=== PATIENT | male | born 1970 | race Caucasian/White ===

== ENCOUNTER 2020-01-28 17:22 | Observation (INO) | payer OTHER, SELFPAY ==
[2020-01-28 17:48] VITALS: BP 161/80; PULSE 54; RESP 22; TEMP 37; O2SAT 99; BMI 43.9
[2020-01-28 18:11] LABS: Add Manual Diff / Slide Review NO; Basophils Absolute Auto 100 /uL (0-100); Basophils Percent Auto 0.5 % (0-2); Eosinophils Absolute Auto 200 /uL (0-450); Eosinophils Percent Auto 1.5 % (2-4); Hematocrit 45.7 % (41-53); Hemoglobin 15.5 g/dL (13.5-17.5); Lymphocytes Absolute Auto 1700 /uL (1100-4500); Lymphocytes Percent Auto 12.3 % (25-40); Mean Corpuscular HGB Conc 33.9 % (30-36); Mean Corpuscular Hemoglobin 27.7 PG (26-34); Mean Corpuscular Volume 81.8 fL (80-100); Monocytes Absolute Auto 900 /uL (0-900); Monocytes Percent Auto 6.5 % (3-14); Neutrophils Absolute Auto 10900 /uL (1500-7000); Neutrophils Percent Auto 79.2 % (50-75); Platelet Count 354 X10^3/uL (150-400); Red Blood Cell Count 5.58 X10^6/uL (4.5-5.9); Red Cell Distribution Width 14.4 % (11.6-14.8); White Blood Cell Count 13.7 X10^3/uL (4.5-11.0)
[2020-01-28] MEDS: SODIUM CHLORIDE 0.9% 1,000 ML 1000 ML IV (18:12)
[2020-01-28] MEDS: ONDANSETRON 4 MG/2 ML INJ IV (18:12)
--- NOTE | 2020-01-28 18:12 | ED.ABDPAIN ---
HPI - Abdominal Pain General Chief Complaint: Abdominal Pain Stated Complaint: gallbladder attack Time Seen by Provider: 01/28/20 17:58 Source: patient and family Mode of arrival: Family Vehicle Limitations: no limitations History of Present Illness HPI narrative: 41-year-old male former smoker with history of GERD and recurrent gallbladder troubles since August presents with severe epigastric pain radiating to his back that started after eating a [employer] breakfast. He states this feels similar to prior gallbladder attacks but more intense. He had a HIDA scan ordered by an outside facility demonstrating decreased gallbladder function. He denies any fever or chills but complains of severe pain with nausea. He last ate at about 2:00 p.m.. He denies any change in bowel habits nor urinary complaints such as dysuria, frequency or urgency MD complaint: abdominal pain Onset (ago): hour(s) Pain Consistency: constant Location: epigastric Severity: severe Quality: stabbing and aching Radiation: back Relieving factors: rest Exacerbating factors: eating and movement Associated symptoms: nausea Related Data Home Medications Medication Instructions Recorded Confirmed acetaminophen 325 mg PO #0 01/18/17 bupropion HCl 100 mg PO QDAY #0 01/18/17 naproxen sodium [Aleve] 220 mg PO #0 01/18/17 Previous Rx's Medication Instructions Recorded fluticasone propionate 1 spray INTRANASAL BID #3 inh 01/18/17 omeprazole 20 mg PO BID #180 cap 01/18/17 Allergies Allergy/AdvReac Type Severity Reaction Status Date / Time oxycodone AdvReac Nausea Verified 01/28/20 19:35 Review of Systems Constitutional Constitutional: Denies chills, Denies fatigue, Denies fever(s), Denies frequent falls, Denies lethargy and Denies weakness Eyes Eyes: Denies change in vision, Denies eye discharge, Denies irritation and Denies loss of vision ENT Ears, Nose, Mouth, and Throat: Denies change in voice, Denies dizziness, Denies neck pain, Denies sore throat and Denies throat swelling Cardiovascular Cardiovascular: Denies chest pain, Denies irregular heart rhythm, Denies lightheadedness, Denies palpitations, Denies dyspnea, Denies dyspnea on exertion and Denies orthopnea Respiratory Respiratory: Denies cough, Denies dyspnea, Denies dyspnea on exertion and Denies wheezing Gastrointestinal Gastrointestinal: Reports abdominal pain, Denies change in bowel habits, Denies diarrhea, Reports nausea and Denies vomiting Genitourinary Genitourinary: Denies hematuria, Denies flank pain, Denies urinary incontinence and Denies urinary urgency Musculoskeletal Musculoskeletal: Denies back pain, Denies muscle weakness, Denies neck pain, Denies numbness and Denies tingling Integumentary/Breasts Skin/Breast: Denies pruritus, Denies erythema, Denies rash and Denies wounds Neurologic Neurologic: Denies behavioral changes, Denies confusion, Denies dizziness, Denies frequent falls, Denies loss of vision, Denies numbness, Denies tingling and Denies weakness Psychiatric Psychiatric: Denies anxiety, Denies behavioral changes, Denies confusion, Denies depression, Denies homicidal ideation and Denies suicidal ideation Endocrine Endocrine: Denies fatigue, Denies flushing and Denies palpitations Hematologic/Lymphatic Hematologic/Lymphatic: Denies easy bruising Allergic/Immunologic Allergic/Immunologic: Denies urticaria, Denies throat swelling and Denies wheezing Patient History Family History Father Age: 80 Cancer Diabetes mellitus Heart disease Mother Hypertension Mental health problem Stroke Sister Age: 58 Breast cancer Diabetes mellitus Sister Age: 56 Mental health problem Social History household members: spouse Smoking Status: Former smoker Smoking Status: Former smoker alcohol intake frequency: holidays/special occasions only Substance Use Type: does not use Exam Narrative Exam Narrative: GENERAL: [49] year old patient appears stated age. Well-nourished, well-developed patient, in moderate, rubbing his upper belly, obviously in significant pain HEAD: Atraumatic. Normocephalic. EYES: Pupils equal round and reactive. Extraocular motions intact. No scleral icterus. No injection or drainage. ENT: Nose without bleeding, purulent drainage. Throat without erythema, tonsillar hypertrophy or exudate. Airway patent. NECK: Trachea midline. Non tender CARDIOVASCULAR: Regular rate and rhythm without murmurs, gallops, or rubs. RESPIRATORY: Clear to auscultation. Breath sounds equal bilaterally. No wheezes, rales, or rhonchi. GASTROINTESTINAL: Abdomen soft, severely tender in the epigastrium, nondistended. EXTREMITIES: No edema or joint tenderness. BACK: Nontender without deformity or crepitance. No flank tenderness. NEURO: AOx3. SKIN: No rash or erythema of visible areas Initial Vital Signs Initial Vital Signs: Vital Signs Temperature 98.6 F 01/28/20 17:48 Pulse Rate 54 L 01/28/20 17:48 Respiratory Rate 22 01/28/20 17:48 Blood Pressure 161/80 H 01/28/20 17:48 Pulse Oximetry 99 01/28/20 17:48 Course Orders Ordered: ED Orders 01/28/20 18:13 US abdomen limited Stat Piperacillin/Tazobactam/Dextrose (Zosyn) 3.375 gm in 50 mls @ 100 mls/hr IV Q8H KATINA Last Infusion: 01/28/20 20:15 Dose: 0 mls/hr Documented by: Admin: 01/28/20 19:41 Dose: 100 mls/hr Documented by: SANA Sodium Chloride (Normal Saline 0.9%) 1,000 mls @ 125 mls/hr IV CONT KATINA Last Admin: 01/28/20 20:30 Dose: 125 mls/hr Documented by: RUFUS Morphine Sulfate (Morphine) 2 mg IV Q4HR PRN PRN Reason: Pain, Severe (7-10) Last Admin: 01/28/20 22:41 Dose: 2 mg Documented by: RUFUS Ondansetron HCl (Zofran) 4 mg IV Q4HR PRN PRN Reason: Nausea And Vomiting Oxycodone/Acetaminophen (Percocet 5/325) 1 tab PO Q4HR PRN PRN Reason: Pain, Moderate (4-6) Discontinued Medications Hydromorphone HCl (Dilaudid) 1 mg IV NOW ONE Stop: 01/28/20 18:14 Last Admin: 01/28/20 18:20 Dose: 1 mg Documented by: NILSON Hydromorphone HCl (Dilaudid) 1 mg IV NOW ONE Stop: 01/28/20 18:59 Last Admin: 01/28/20 19:07 Dose: 1 mg Documented by: SANA Sodium Chloride (Normal Saline 0.9%) 1,000 mls @ 1,000 mls/hr IV BOLUS ONE Stop: 01/28/20 19:06 Last Infusion: 03/01/20 19:31 Dose: 0 mls/hr Documented by: Admin: 01/28/20 18:12 Dose: 1,000 mls/hr Documented by: NILSON Ketorolac Tromethamine (Toradol) 15 mg IV NOW ONE Stop: 01/28/20 19:28 Last Admin: 01/28/20 19:31 Dose: 15 mg Documented by: SANA Ondansetron HCl (Zofran) 4 mg IV NOW ONE Stop: 01/28/20 18:08 Last Admin: 01/28/20 18:12 Dose: 4 mg Documented by: NILSON Consultations Consultation #1: Dr. Tolentino happy to accept Vital Signs Vital signs: Vital Signs - 8 hr 01/28/20 17:48 01/28/20 18:15 Temperature 98.6 F Pulse Rate 54 L 63 Respiratory Rate 22 18 Blood Pressure 161/80 H Blood Pressure [Left Arm] 157/77 H Pulse Oximetry 99 99 MDM - Abdominal Pain Lab Data Result diagrams: 01/28/20 18:05 01/28/20 18:05 Labs: Lab Results 01/28/20 01/28/20 01/28/20 Range/Units 18:05 18:05 18:05 WBC 13.7 H (4.5-11.0) X10^3/uL RBC 5.58 (4.5-5.9) X10^6/uL Hgb 15.5 (13.5-17.5) g/dL Hct 45.7 (41-53) % MCV 81.8 (80-100) fL MCH 27.7 (26-34) PG MCHC 33.9 (30-36) % RDW 14.4 (11.6-14.8) % Plt Count 354 (150-400) X10^3/uL Neut % (Auto) 79.2 H (50-75) % Lymph % (Auto) 12.3 L (25-40) % Dolores % (Auto) 6.5 (3-14) % Eos % (Auto) 1.5 L (2-4) % Baso % (Auto) 0.5 (0-2) % Neut # (Auto) 37922 H (7504-2264) /uL Lymph # (Auto) 1700 (0222-8899) /uL Dolores # (Auto) 900 (0-900) /uL Eos # (Auto) 200 (0-450) /uL Baso # (Auto) 100 (0-100) /uL PT 12.4 (10.1-12.7) SECONDS INR 1.1 (0.9-1.3) APTT 31 (26.4-36.2) SECONDS Sodium 141 (137-145) mmol/L Potassium 4.0 (3.4-5.1) mmol/L Chloride 104 (98-107) mmol/L Carbon Dioxide 24 (22-32) mmol/L BUN 16 (9-20) mg/dL Creatinine 0.90 (0.66-1.25) mg/dL Estimated GFR > 60.0 (>60) mL/min BUN/Creatinine Ratio 17.8 (6-22) Glucose 109 H (70-100) mg/dL Calcium 9.6 (8.4-10.2) mg/dL Total Bilirubin 0.6 (0.2-1.3) mg/dL AST 38 (17-59) IU/L ALT 53 H (<50) IU/L Alkaline Phosphatase 61 (38-126) U/L Total Protein 9.1 H (6.3-8.2) g/dL Albumin 4.9 (3.5-5.0) g/dL Globulin 4.2 H (1.7-4.1) g/dL Albumin/Globulin Ratio 1.2 (1.0-2.8) Lipase 123 (23-300) U/L Discharge Plan Departure Patient Disposition: Admitted As Inpatient Clinical Impression: Cholelithiasis Qualifiers: Cholelithiasis location: gallbladder Cholecystitis presence: without cholecystitis Biliary obstruction: without biliary obstruction Qualified Code(s): K80.20 - Calculus of gallbladder without cholecystitis without obstruction Discharge Date/Time: 01/28/20 20:19 Referrals: Silvia Calle DO [Primary Care Provider] - Admit Date/Time: 01/28/20 19:44 Admit Provider: Janes Tolentino
--- NOTE | 2020-01-28 18:13 | DI.US.S_ITS ---
PROCEDURE: US ABDOMEN LIMITED INDICATIONS: SEVERE EPIGASTRIC PAIN TECHNIQUE: Real-time scanning was performed of the abdominal and retroperitoneal organs, with image documentation. COMPARISON: None. FINDINGS: Liver: Liver is enlarged and measures 21.6 cm in length. Markedly increased liver parenchymal echotexture is seen. No definite discrete hepatic lesion is noted. Gallbladder: 6.8 mm stone is seen in neck of gallbladder. No gallbladder wall thickening or pericholecystic fluid is seen. There is sonographic Crowder's sign during the study. Biliary ducts: Biliary ducts are not well-seen due to patient condition. IMPRESSION: 1. Cholelithiasis with positive sonographic Crowder sign consistent with acute cholecystitis. 2. Hepatomegaly and severe hepatic steatosis. 3. Limited evaluation of common bile duct, no obvious biliary ductal dilatation is seen. Dictated by: Doron Walls M.D. on 01/28/2020 at 20:03 Approved by: Doron Walls M.D. on 01/28/2020 at 20:05
[2020-01-28 18:15] VITALS: BP 157/77; PULSE 63; RESP 18; O2SAT 99
[2020-01-28 18:18] LABS: INR 1.1 (0.9-1.3); Prothrombin Time 12.4 SECONDS (10.1-12.7)
[2020-01-28] MEDS: HYDROMORPHONE 1 MG INJ IV ×2 (18:20→19:07)
[2020-01-28 18:21] LABS: PTT Partial Thromboplastin Tim 31 SECONDS (26.4-36.2)
[2020-01-28 18:22] LABS: Alanine Aminotransferase 53 IU/L (<50); Albumin 4.9 g/dL (3.5-5.0); Albumin Globulin Ratio 1.2 (1.0-2.8); Alkaline Phosphatase 61 U/L (38-126); Aspartate Aminotransferase 38 IU/L (17-59); BUN Creatinine Ratio 17.8 (6-22); Bilirubin Total 0.6 mg/dL (0.2-1.3); Blood Urea Nitrogen 16 mg/dL (9-20); Calcium 9.6 mg/dL (8.4-10.2); Carbon Dioxide 24 mmol/L (22-32); Chloride 104 mmol/L (98-107); Estimated Glomerular Filt Rate > 60.0 mL/min (>60); Globulin 4.2 g/dL (1.7-4.1); Glucose 109 mg/dL (70-100); HEMOLYSIS 15 (0-50); Lipase 123 U/L (23-300); Sodium 141 mmol/L (137-145); Total Protein 9.1 g/dL (6.3-8.2)
[2020-01-28] MEDS: KETOROLAC 60 MG/2 ML VIAL 15 MG IV (19:31)
[2020-01-28] MEDS: PIPERACILLIN-TAZO 3.375 GM/50 ML FROZ.PIGGY IV (19:41)
[2020-01-28 19:56] VITALS: BP 148/72; PULSE 53; RESP 17; O2SAT 98
[2020-01-28 20:18] VITALS: BP 154/80; PULSE 60; RESP 16; O2SAT 97
[2020-01-28 20:25] VITALS: BP 143/75; PULSE 67; RESP 18; TEMP 36.6; O2SAT 98
[2020-01-28] MEDS: SODIUM CHLORIDE 0.9% 1,000 ML 125 ML IV (20:30)
[2020-01-28 20:33] VITALS: BMI 43.9
[2020-01-28] MEDS: MORPHINE 2 MG/ML INJ IV (22:41)
[2020-01-29] VITALS (16 sets, daily range): BP systolic 108–140; BP diastolic 59–85; PULSE 16–84; RESP 10–18; TEMP 36.2–37; O2SAT 90–99; BMI 43.9
--- NOTE | 2020-01-29 | PATH_ITS ---
[facility] Accession Number: [id number] . 01 Material submitted: . gallbladder - GALLBLADDER AND CONTENTS . 01 Clinical history: . GALLBLADDER ATTACK . 02 Diagnosis: Gallbladder, Cholecystectomy: Chronic cholecystitis with cholelithiasis. Negative for dysplasia and malignancy. MRV 01/31/2020 0945 Local . 02 Electronically signed: . Celena Maguire MD, Pathologist NPI- [id number] . 01 Gross description: . Received in formalin, labeled gallbladder and contents, is an intact gallbladder (length-9.0 cm, diameter-3.8 cm) with austin-green, smooth, shiny serosa and a patent cystic duct. Multiple possible lymph nodes (0.2 x 0.2 x 0.1 cm-0.5 x 0.3 x 0.2 cm) are identified. The lumen contains dark green, tacky, watery bile and one pale yellow, semi-translucent, hard calculus (0.7 x 0.6 x 0.6 cm) with a clear crystalline cut surface. The mucosa is middleton-green and rough. The wall is up to 0.1 cm thick. No nodules, masses or lesions are identified. Section code: (A1) cystic duct resection margin and two serial sections from the body; (A2) two longitudinal sections from the fundus; (A3) multiple intact possible lymph nodes. ([id number]) /MRV 01/30/2020 1322 Local . 02 Pathologist provided ICD-10: K80.60 . 02 CPT . 513208 Performed at: [address], [place], [place] [id number] MD Frank Alberto MD Phone: [phone] Performed at: 02 [facility] [place] [address] [place] [id number] MD Celena Maguire MD Phone: [phone]
[2020-01-29] MEDS: PIPERACILLIN-TAZO 3.375 GM/50 ML FROZ.PIGGY IV ×2 (03:47→11:49)
[2020-01-29] MEDS: MORPHINE 2 MG/ML INJ IV ×4 (03:52→20:59)
--- NOTE | 2020-01-29 06:17 | PM.HP.1 ---
History of Present Illness History of Present Illness Date Patient Seen: 01/29/20 Time Patient Seen: 06:18 Chief complaint: gallbladder attack Narrative: Yair is a 41-year-old male who presents with 1 day of epigastric pain and evidence of acute cholecystitis. It some associated nausea bloating no fever. He underwent ultrasound the emergency room demonstrates a stone stuck within the gallbladder neck and had positive Crowder sign. He has had 3 emergency room visits related to gallbladder disease has undergone outpatient workup including a HIDA scan which did demonstrate an ejection fraction 25%. White blood cell count on admission 14 afebrile total bilirubin 0.6. Nonsmoker not on anticoagulation no significant past medical or surgical history. Patient History Family & Social History Family History Father Age: 80 Cancer Diabetes mellitus Heart disease Mother Hypertension Mental health problem Stroke Sister Age: 58 Breast cancer Diabetes mellitus Sister Age: 56 Mental health problem Social History: household members spouse Prior Living Arrangements House Safety & Behavioral: Feels Safe in Current Yes Environment Been Physically Hurt or No Threatened By a Person Suicidal Ideation Description None Suicide Plan Description No Plan Tobacco & Substance use: Smoking Status Former smoker alcohol intake frequency holiday/special occasion Substance Use Type does not use Meds Home Medications and Allergies Home Medications Medication Instructions Recorded Confirmed Type acetaminophen 325 mg PO #0 01/18/17 History bupropion HCl 100 mg PO QDAY #0 01/18/17 History fluticasone propionate 1 spray INTRANASAL BID #3 inh 01/18/17 Rx naproxen sodium [Aleve] 220 mg PO #0 01/18/17 History omeprazole 20 mg PO BID #180 cap 01/18/17 Rx Allergies Allergy/AdvReac Type Severity Reaction Status Date / Time oxycodone AdvReac Nausea Verified 01/28/20 19:35 Review of Systems Review of Systems Narrative: A 10 point review of systems is negative except as noted in the HPI Exam Vital Signs (past 8 hours): - 01/29/20 00:49 01/29/20 06:00 Temperature 98.6 F 97.4 F L Pulse Rate 80 65 Respiratory Rate 16 18 Blood Pressure 110/72 128/71 Pulse Oximetry 99 98 Oxygen Delivery Method Room Air Oxygen Flow Rate 0 Narrative Exam Narrative: General-no acute distress, well nourished HEENT-moist mucous membranes, no scleral icterus Neck-supple, no lymphadenopathy Chest- non labored respirations, clear to auscultation bilaterally Cardiac-regular rate no peripheral edema Abdomen-soft right upper quadrant pain with deep palpation. Extremities-warm, well perfused Neurological-alert and oriented, no focal deficits Objective Labs Result Diagrams: 01/28/20 18:05 01/28/20 18:05 Labs: Laboratory Results - last 24 hr 01/28/20 01/28/20 01/28/20 18:05 18:05 18:05 WBC 13.7 H RBC 5.58 Hgb 15.5 Hct 45.7 MCV 81.8 MCH 27.7 MCHC 33.9 RDW 14.4 Plt Count 354 Neut % (Auto) 79.2 H Lymph % (Auto) 12.3 L [place] % (Auto) 6.5 Eos % (Auto) 1.5 L Baso % (Auto) 0.5 Neut # (Auto) 98678 H Lymph # (Auto) 1700 [place] # (Auto) 900 Eos # (Auto) 200 Baso # (Auto) 100 PT 12.4 INR 1.1 APTT 31 Sodium 141 Potassium 4.0 Chloride 104 Carbon Dioxide 24 BUN 16 Creatinine 0.90 Estimated GFR > 60.0 BUN/Creatinine Ratio 17.8 Glucose 109 H Calcium 9.6 Total Bilirubin 0.6 AST 38 ALT 53 H Alkaline Phosphatase 61 Total Protein 9.1 H Albumin 4.9 Globulin 4.2 H Albumin/Globulin Ratio 1.2 Lipase 123 Assessment & Plan Assessment and plan (1) Acute cholecystitis: Current visit: Yes Status: Acute (2) Depression: Current visit: Yes Status: Acute Assessment & Plan narrative: Yair is a 49-year-old male admitted with acute cholecystitis. 24 hours of right upper quadrant pain, and ultrasounds to showing a stone stuck within the gallbladder neck white count 14, normal LFTs. Laparoscopic cholecystectomy is indicated. We discussed the technical nature of the procedure expected postoperative recovery and its associated surgical risks of bleeding infection bile leak damage to surrounding structures conversion to open. His questions have been answered and he is in agreement with this plan.
[2020-01-29] MEDS: SODIUM CHLORIDE 0.9% 1,000 ML 125 ML IV (07:40)
[2020-01-29] MEDS: LACTATED RINGERS 1,000 ML 42 ML IV ×2 (13:25→15:10)
--- NOTE | 2020-01-29 14:24 | SUR.OPER ---
Supine on padded OR bed, head on pillow, safety belt at thigh, Both arms secured on padded arm boards <90 degrees abduction. Legs uncrossed. Padded footboard in place. Tape over blanket to secure lower legs.
--- NOTE | 2020-01-29 15:37 | CM.DPNOTE ---
DCP Brief Assessment Note Patient is a 49 year old male who was admitted OBS Status on 01/28/20 for Gallbladder attack. Pt has [employer] for insurance and his PCP is Dr. Silvia Calle. EMR was reviewed. Per Surgeon, pt schedule for Lap Jazmín this afternoon due to stone stuck in gallbladder neck. Bedside assessment not completed as pt was off the floor in surgery half the day. Plan: SW to follow after pt returns to the floor from surgery to determine any d/c planning needs and if pt will be safe for return home with spouse when stable. TAL Patino
[2020-01-29] MEDS: fentaNYL 100 MCG/2 ML INJ IV ×4 (15:40→16:05)
--- NOTE | 2020-01-29 16:02 | PC.NURSE ---
Spoke to patient's regarding patient's home CPAP, and if someone could bring it in, and she states that patient has not used it in 6 months, it is not clean, patient doesn't use and that he should use one of IHs.
[2020-01-29] MEDS: LACTATED RINGERS 1,000 ML 125 ML IV (16:57)
[2020-01-29] MEDS: ONDANSETRON 4 MG/2 ML INJ IV (19:52)
[2020-01-29] MEDS: OXYCODONE/ACETAMINOPHEN 5/325 TABLET 1 TAB PO (19:52)
[2020-01-29] MEDS: DOCUSATE 100 MG CAPSULE PO (21:02)
--- NOTE | 2020-01-29 21:41 | PC.NURSE ---
Pt A and O x 4, VSS. DC order written. Pt is eating solid food, drinking, voiding and has + BTs. Pain is 5-7/10, MD aware. Discharge instructions reviewed and patient and spouse state they understand and have no further questions. Pt taken to private care by wheelchair.
--- NOTE | 2020-01-31 08:37 | PM.OP.1 ---
Operative Date/Time/Diagnoses Date of procedure: 01/29/20 Pre-op diagnosis: Acute cholecystitis Post-op diagnosis: same Procedure & Clinicians Procedure: Laparoscopic cholecystectomy Same procedure as scheduled: Yes Indications: Acute cholecystitis, stone lodged within the neck of the gallbladder positive Crowder's and leukocytosis normal LFTs Surgeon: Janes Tolentino Click Yes if Unassisted: Yes Anesthesia Type: General Operative Notes Findings: Acute cholecystitis Specimen(s): other (Gallbladder) Estimated Blood Loss (mL): 10 Procedure in detail: The patient was brought to the operating room placed supine on the table. Bilateral lower extremity compression devices were applied. General anesthesia was induced and they were intubated with an endotracheal tube. They the received Zosyn prior to skin incision. A time-out was performed to ensure the correct patient procedure necessary equipment within the operating room. They were then prepped and draped in the usual sterile fashion. Infraumbilical incision was made the umbilical stalk was grasped and elevated and the fascia was sharply incised. The abdomen was entered atraumatically. A 10 mm trocar was then placed into the abdomen. Pneumoperitoneum was established. The laparoscopic camera was inserted into the abdomen inspection was made that demonstrated no evidence of injury upon entry. We then placed our working ports the 1st 11 mm port high in the epigastrium and then two 5mm in the right upper quadrant. The gallbladder was grasped and retracted over the liver and grasped laterally by the fundus. There was evidence of acute cholecystitis as well as a stone mobile within the neck of the gallbladder. The triangle of Calot was exposed. The triangle of calot was then meticulosly skeletonized using hook electrocautery and demonstrated the cystic duct clearly entering the gallbladder the cystic artery and the liver and in the background. With the critical view of safety established the cystic duct was clipped twice proximally and once distally and then sharply divided and the cystic artery was taken in the same fashion. Next the gallbladder was removed from the liver bed using electro cautery. The liver bed was then inspected for hemostasis and this was achieved. The abdomen was irrigated with sterile saline and inspection was made that showed the clips in good position. The specimen was removed using Endo-Catch. The abdomen was desufflated. The the fascia of the umbilicus was closed with 0 Vicryl in a [id number] fashion. Skin incisions were irrigated and closed with 4-0 Monocryl. The wounds were sealed with Dermabond. Patient emerged from general anesthesia was extubated and transferred to the postoperative care unit missed stable condition. The sponge and instrument count at the end of the operation was correct. Complications: none Post-operative Condition: stable Disposition: same day surgery
== END 2020-01-29 21:53 | disposition home or self-care (01) ==
LOC: ED 19:26 → AC 19:46
PROVIDERS: Emergency Medicine; Admitting Provider Surgery; Emergency Provider Emergency Medicine; Family Provider Family Medicine; PCP Family Medicine; Referring Provider Emergency Medicine; Visit Provider Surgery
PROC: 0FT44ZZ Resection of Gallbladder, Percutaneous Endoscopic Approach (ICD-10-PCS; CPT 47562; principal; 2020-01-29 15:15)
DX: K80.00 Calculus of gallbladder with acute cholecystitis without obstruction (principal); R10.13 Epigastric pain; F32.9 Major depressive disorder, single episode, unspecified
CPT/HCPCS: 47562; 36415; 76705; 80053; 83690; 85025; 85610; 85730; 93005; 93010; 96361; 96365; 96366; 96375; 96376; 99220; 99284; G0378; J0330; J1100; J1170; J1885; J2270; J2405; J2543; J2704; J3010

== ENCOUNTER → 2021-05-02 09:28 | Outpatient (CLI) | payer OTHER, SELFPAY ==
[2021-05-02 10:32] LABS: Add Manual Diff / Slide Review NO; Basophils Absolute Auto 100 /uL (0-100); Basophils Percent Auto 0.8 % (0-2); Eosinophils Absolute Auto 400 /uL (0-450); Eosinophils Percent Auto 4.9 % (2-4); Hematocrit 43.9 % (41-53); Hemoglobin 14.5 g/dL (13.5-17.5); Lymphocytes Absolute Auto 2300 /uL (1100-4500); Lymphocytes Percent Auto 28.4 % (25-40); Mean Corpuscular HGB Conc 32.9 % (30-36); Mean Corpuscular Hemoglobin 27.1 PG (26-34); Mean Corpuscular Volume 82.3 fL (80-100); Monocytes Absolute Auto 700 /uL (0-900); Monocytes Percent Auto 8.5 % (3-14); Neutrophils Absolute Auto 4700 /uL (1500-7000); Neutrophils Percent Auto 57.4 % (50-75); Platelet Count 353 X10^3/uL (150-400); Red Blood Cell Count 5.33 X10^6/uL (4.5-5.9); Red Cell Distribution Width 15.4 % (11.6-14.8); White Blood Cell Count 8.2 X10^3/uL (4.5-11.0)
[2021-05-02 10:42] LABS: Hemoglobin A1C% w Est Avg Glu 6.2 % (4.0-6.0)
[2021-05-02 10:48] LABS: Alanine Aminotransferase 47 IU/L (<50); Albumin Globulin Ratio 1.1 (1.0-2.8); Alkaline Phosphatase 54 U/L (38-126); Aspartate Aminotransferase 34 IU/L (17-59); BUN Creatinine Ratio 15.2 (6-22); Bilirubin Total 0.2 mg/dL (0.2-1.3); Blood Urea Nitrogen 12 mg/dL (9-20); Calcium 8.9 mg/dL (8.4-10.2); Carbon Dioxide 28 mmol/L (22-32); Chloride 104 mmol/L (98-107); Cholesterol 109 mg/dL (140-199); Estimated Glomerular Filt Rate > 60.0 mL/min (>60); Globulin 3.5 g/dL (1.7-4.1); Glucose 82 mg/dL (70-100); HDL Cholesterol 22 mg/dL (40-60); HEMOLYSIS < 15 (0-50); LDL Cholesterol Calculated 70 mg/dL (<100); Sodium 139 mmol/L (137-145); Total Protein 7.5 g/dL (6.3-8.2); Triglycerides 86 mg/dL (35-150)
[2021-05-02 10:59] LABS: Vitamin D 25 Hydroxy (D3) 19.1 ng/mL (30.0-100.0)
[2021-05-02 11:07] LABS: Free T3, Triiodothyronine Free 4.24 pg/mL (2.77-5.27); Free T4, Direct Thyroxine 1.68 ng/dL (0.78-2.19)
[2021-05-02 11:20] LABS: Thyroid Stimulating Hormone 2.15 uIU/mL (0.47-4.68)
== END ==
PROVIDERS: Family Provider Family Medicine; PCP Family Medicine; Referring Provider Family Medicine; Visit Provider Family Medicine
DX: Z13.21 Encounter for screening for nutritional disorder (principal); Z83.3 Family history of diabetes mellitus
CPT/HCPCS: 36415; 80053; 80061; 82306; 83036; 84439; 84443; 84481; 85025

== ENCOUNTER 2021-07-31 08:19 | Emergency (ER) | payer OTHER, SELFPAY ==
[2021-07-31 08:29] VITALS: BP 141/69; PULSE 63; RESP 18; TEMP 35.9; O2SAT 100; BMI 45.9
[2021-07-31 09:00] LABS: Add Manual Diff / Slide Review NO; Basophils Absolute Auto 100 /uL (0-100); Basophils Percent Auto 0.8 % (0-2); Eosinophils Absolute Auto 300 /uL (0-450); Eosinophils Percent Auto 3.2 % (2-4); Hematocrit 42.5 % (41-53); Hemoglobin 14.2 g/dL (13.5-17.5); Lymphocytes Absolute Auto 1600 /uL (1100-4500); Mean Corpuscular HGB Conc 33.4 % (30-36); Mean Corpuscular Hemoglobin 27.1 PG (26-34); Monocytes Absolute Auto 600 /uL (0-900); Neutrophils Absolute Auto 6400 /uL (1500-7000); Platelet Count 273 X10^3/uL (150-400); Red Blood Cell Count 5.25 X10^6/uL (4.5-5.9); Red Cell Distribution Width 14.9 % (11.6-14.8); White Blood Cell Count 9.1 X10^3/uL (4.5-11.0)
[2021-07-31 09:02] LABS: Alanine Aminotransferase 47 IU/L (<50); Albumin Globulin Ratio 1.3 (1.0-2.8); Alkaline Phosphatase 57 U/L (38-126); Aspartate Aminotransferase 35 IU/L (17-59); BUN Creatinine Ratio 18.4 (6-22); Bilirubin Total 0.5 mg/dL (0.2-1.3); Blood Urea Nitrogen 14 mg/dL (9-20); Calcium 8.7 mg/dL (8.4-10.2); Carbon Dioxide 26 mmol/L (22-32); Chloride 104 mmol/L (98-107); Creatine Kinase 118 U/L (55-170); Estimated Glomerular Filt Rate > 60.0 mL/min (>60); Globulin 3.2 g/dL (1.7-4.1); Glucose 139 mg/dL (70-100); HEMOLYSIS < 15 (0-50); Lipase 62 U/L (23-300); Potassium 3.9 mmol/L (3.4-5.1); Sodium 138 mmol/L (137-145); Total Protein 7.2 g/dL (6.3-8.2)
--- NOTE | 2021-07-31 09:03 | ED.DIZZY ---
HPI - Dizziness General Chief Complaint: Dizziness Stated Complaint: dizzy,vertigo Time Seen by Provider: 07/31/21 08:56 Source: patient Mode of arrival: Ambulatory Limitations: no limitations History of Present Illness HPI Narrative: The patient was well when he went to bed last night. He woke with dizziness this morning. He has counter-clockwise spinning. He has no visual changes. He has no confusion or speech changes. He has no peripheral numbness or weakness. He denies recent illness, specifically no URI symptoms. He has no chronic ear problems. He has not previously experienced dizziness. He has nausea, but no emesis. He has no palpitations, chest pain or chest discomfort, or GI symptoms other than nausea. He has history of headaches, he is not experiencing headache at this time. Related Data Home Medications Medication Instructions Recorded Confirmed acetaminophen 325 mg tablet 325 mg PO PRN PRN #0 01/18/17 04/23/21 [id number] 250 2 tab PO Q6H PRN 04/23/21 04/23/21 mg-250 mg-65 mg tablet (Excedrin Extra Strength) naproxen sodium 220 mg tablet 220 mg PO BID PRN 04/23/21 04/23/21 (Aleve) Previous Rx's Medication Instructions Recorded ergocalciferol (vitamin D2) 1,250 1,250 mcg PO QWEEK #8 cap 07/10/21 mcg (50,000 unit) capsule (Vitamin D2) sumatriptan succinate 50 mg tablet See Rx Instructions PO .COMPLEX 07/10/21 #20 tab meclizine 25 mg tablet 25 mg PO TID PRN #20 tab 07/31/21 Allergies Allergy/AdvReac Type Severity Reaction Status Date / Time oxycodone AdvReac Nausea Verified 04/23/21 08:31 Review of Systems Constitutional Constitutional: Reports as per HPI, Denies body ache(s), Denies chills, Denies fatigue, Denies fever(s) and Denies headache(s) Eyes Eyes: Denies blurry vision and Denies change in vision ENT Ears, Nose, Mouth, and Throat: Reports dizziness, Denies ear discharge, Denies otalgia, Denies facial pain, Denies headache(s), Denies mouth lesions, Denies nasal congestion and Denies nasal discharge Cardiovascular Cardiovascular: Denies chest pain and Denies rapid heart rate Respiratory Respiratory: Denies chest congestion and Denies cough Gastrointestinal Gastrointestinal: Denies abdominal pain, Reports nausea and Denies vomiting Musculoskeletal Musculoskeletal: Denies back pain and Denies arthralgias Integumentary/Breasts Skin/Breast: Denies dry skin, Denies erythema and Denies rash Neurologic Neurologic: Reports dizziness and Denies headache(s) Psychiatric Psychiatric: Denies anxiety Endocrine Endocrine: Denies fatigue Patient History Medical History Acne (~1984) Acute cholecystitis ADHD Ankle pain (~1999) Anxiety and depression (~1999) BMI greater than 30 Chicken pox Cholelithiasis Chronic low back pain with sciatica (~2004) Depression Fractures (~1997) GERD (gastroesophageal reflux disease) (~2013) Headache (~2013) Low testosterone (~2013) Lumbar pain (~2009) Migraine Migraines (~2013) Pre-diabetes Sleep apnea (~2016) Spinal stenosis Tinnitus (~2001) Vitamin D deficiency Surgical History Anesthesia Hx laparoscopic cholecystectomy (~01/2020) Family History Father Age: 81 Diabetes mellitus Heart disease Skin cancer Mother Hypertension Mental health problem Stroke Hyperlipidemia Sister Age: 59 Breast cancer Diabetes mellitus Sister Age: 57 Mental health problem Diabetes mellitus Grandfather Accident Grandmother Dementia Grandfather Lung cancer Grandmother Lung cancer Social History household members: spouse Smoking Status: Former smoker alcohol intake: current Smoking Status: Former smoker alcohol intake frequency: holidays/special occasions only Substance Use Type: does not use Exam Initial Vital Signs Initial Vital Signs: Vital Signs Temperature 96.6 F L 07/31/21 08:29 Pulse Rate 63 07/31/21 08:29 Respiratory Rate 18 07/31/21 08:29 Blood Pressure 141/69 H 07/31/21 08:29 Pulse Oximetry 100 07/31/21 08:29 Const General: cooperative, healthy appearing, comfortable, well developed, well groomed and No acute distress HENMT Head: normal to inspection, normocephalic and atraumatic Ears: other ( Cerumen impaction. Normal TMs. Fluid behind TMs.) Nose: nares normal Face and sinus: sinuses nontender Mouth: oral mucosae normal Throat: posterior oropharynx normal, tonsils normal and uvula midline Eyes General: appearance normal, both eyes and all related structures Pupils: PERRL EOM: EOM intact bilaterally Neck Neck: supple, No lymphadenopathy and No JVD Chest Chest: normal inspection of the chest Resp Effort & Inspection: normal respiratory effort Auscultation: clear to auscultation bilaterally Percussion: percussion normal Cardio Palpation: normal PMI Rate: regular rate Rhythm: regular rhythm Heart Sounds: S1 normal and S2 normal GI Inspection: normal to inspection, non-distended and obesity Palpation: soft and No tender Auscultation: normal bowel sounds Skin General: no rashes or lesions noted Neuro General: patient alert, patient awake and other ( Hallpike positive to the right) Course Course Course Narrative: the patient's ears were irrigated clear by his nurse. The cerumen impaction has been relieved. His TMs are normal, he has clear fluid behind both TMs. He was given meclizine for labyrinthitis. Symptoms have resolved. Orders Ordered: ED Orders 07/31/21 08:48 EKG-12 Lead Stat 07/31/21 08:52 Complete Blood Count AUTO DIFF Stat Comprehensive Metabolic Panel Stat Lipase Stat Troponin & CK Cardiac Panel Stat Discontinued Medications Meclizine HCl (Meclizine Hcl 12.5 Mg Tablet) 50 mg PO NOW ONE Stop: 07/31/21 09:03 Last Admin: 07/31/21 09:11 Dose: 50 mg Documented by: JO Vital Signs Vital signs: Vital Signs - 8 hr 07/31/21 08:29 07/31/21 09:45 Temperature 96.6 F L Pulse Rate 63 49 L Respiratory Rate 18 12 Blood Pressure 141/69 H 145/74 H Pulse Oximetry 100 98 MDM - Dizziness Lab Data Result diagrams: 07/31/21 08:52 07/31/21 08:52 Labs: Lab Results 07/31/21 07/31/21 Range/Units 08:52 08:52 WBC 9.1 (4.5-11.0) X10^3/uL RBC 5.25 (4.5-5.9) X10^6/uL Hgb 14.2 (13.5-17.5) g/dL Hct 42.5 (41-53) % MCV 81.0 (80-100) fL MCH 27.1 (26-34) PG MCHC 33.4 (30-36) % RDW 14.9 H (11.6-14.8) % Plt Count 273 (150-400) X10^3/uL Neut % (Auto) 71.0 (50-75) % Lymph % (Auto) 18.0 L (25-40) % [place] % (Auto) 7.0 (3-14) % Eos % (Auto) 3.2 (2-4) % Baso % (Auto) 0.8 (0-2) % Neut # (Auto) 6400 (6495-5357) /uL Lymph # (Auto) 1600 (1929-9457) /uL [place] # (Auto) 600 (0-900) /uL Eos # (Auto) 300 (0-450) /uL Baso # (Auto) 100 (0-100) /uL Sodium 138 (137-145) mmol/L Potassium 3.9 (3.4-5.1) mmol/L Chloride 104 (98-107) mmol/L Carbon Dioxide 26 (22-32) mmol/L BUN 14 (9-20) mg/dL Creatinine 0.76 (0.66-1.25) mg/dL Estimated GFR > 60.0 (>60) mL/min BUN/Creatinine Ratio 18.4 (6-22) Glucose 139 H (70-100) mg/dL Calcium 8.7 (8.4-10.2) mg/dL Total Bilirubin 0.5 (0.2-1.3) mg/dL AST 35 (17-59) IU/L ALT 47 (<50) IU/L Alkaline Phosphatase 57 (38-126) U/L Total Creatine Kinase 118 (55-170) U/L CK-MB (CK-2) 1.04 (<2.37) ng/mL CK-MB (CK-2) Rel Index 0.9 L (1.5-5.0) % Troponin I < 0.012 (0.01-0.034) ng/mL Total Protein 7.2 (6.3-8.2) g/dL Albumin 4.0 (3.5-5.0) g/dL Globulin 3.2 (1.7-4.1) g/dL Albumin/Globulin Ratio 1.3 (1.0-2.8) Lipase 62 (23-300) U/L ECG Data Attestation: I personally reviewed and interpreted this ECG as follows: (Sinus bradycardia rate 52 beats per minute. Normal intervals. No ectopy. No acute ST T wave changes.) Discharge Plan Departure Patient Disposition: Home Clinical Impression: Labyrinthitis Qualifiers: Laterality: right Qualified Code(s): H83.01 - Labyrinthitis, right ear Instructions: Labyrinthitis Activity Restrictions/Additional Instructions: Meclizine every 8 hours as needed for dizziness. Mucinex is available [id number], this helps with sinus congestion. This may help with the congestion in your years. Your glucose is mildly elevated. Follow-up with your doctor for monitoring. Return if symptoms escalate. Prescriptions: New meclizine 25 mg tablet 25 mg PO TID PRN (Reason: dizziness) Qty: 20 RF: 0 No Action acetaminophen 325 MG tablet 325 mg PO PRN PRN (Reason: pain) Qty: 0 RF: 0 naproxen sodium [Aleve] 220 mg tablet 220 mg PO BID PRNRF: 0 Excedrin Extra Strength 250-250-65 mg tablet 2 tab PO Q6H PRNRF: 0 sumatriptan succinate 50 mg tablet See Rx Instructions PO .COMPLEX Qty: 20 RF: 3 ergocalciferol (vitamin D2) [Vitamin D2] 1,250 mcg (50,000 unit) capsule 1,250 mcg PO QWEEK Qty: 8 RF: 0 Referrals: David Savage DO [Primary Care Provider] - Stand Alone Forms: Work Release Note
[2021-07-31] MEDS: MECLIZINE HCL 12.5 MG TABLET 50 MG PO (09:11)
[2021-07-31 09:13] LABS: Troponin I < 0.012 ng/mL (0.01-0.034)
[2021-07-31 09:17] LABS: CKMB % Relative Index 0.9 % (1.5-5.0); Creatine Kinase MB 1.04 ng/mL (<2.37)
[2021-07-31 09:45] VITALS: BP 145/74; PULSE 49; RESP 12; O2SAT 98
[2021-07-31 10:49] VITALS: BP 142/84; PULSE 57; RESP 20; O2SAT 98
== END 2021-07-31 10:52 | disposition home or self-care (01) ==
PROVIDERS: Emergency Provider Emergency Medicine; Family Provider Family Medicine; PCP Family Medicine
DX: H83.01 Labyrinthitis, right ear (principal); R11.0 Nausea; R00.1 Bradycardia, unspecified
CPT/HCPCS: 36415; 69209; 80053; 82550; 82553; 83690; 84484; 85025; 93005; 99284

== ENCOUNTER → 2021-10-17 09:42 | Outpatient (CLI) | payer OTHER, SELFPAY ==
[2021-10-17 11:06] LABS: Hematocrit 43.1 % (41-53); Hemoglobin 14.6 g/dL (13.5-17.5); Mean Corpuscular HGB Conc 33.9 % (30-36); Mean Corpuscular Hemoglobin 27.1 PG (26-34); Platelet Count 313 X10^3/uL (150-400); Red Blood Cell Count 5.39 X10^6/uL (4.5-5.9); Red Cell Distribution Width 14.7 % (11.6-14.8); White Blood Cell Count 9.2 X10^3/uL (4.5-11.0)
[2021-10-17 11:10] LABS: Hemoglobin A1C% w Est Avg Glu 5.9 % (4.0-6.0)
[2021-10-17 11:32] LABS: Add Manual Diff / Slide Review YES
[2021-10-17 12:02] LABS: Alanine Aminotransferase 55 IU/L (<50); Albumin 4.2 g/dL (3.5-5.0); Albumin Globulin Ratio 1.4 (1.0-2.8); Alkaline Phosphatase 61 U/L (38-126); Aspartate Aminotransferase 43 IU/L (17-59); Bilirubin Total 0.7 mg/dL (0.2-1.3); Bilirubin Unconjugated 0.7 mg/dL (0.0-1.1); Cholesterol 129 mg/dL (140-199); HDL Cholesterol 28 mg/dL (40-60); HEMOLYSIS < 15 (0-50); LDL Cholesterol Calculated 73 mg/dL (<100); Total Protein 7.2 g/dL (6.3-8.2); Triglycerides 141 mg/dL (35-150)
[2021-10-17 12:13] LABS: LDL Cholesterol Direct 73 mg/dL (<100)
[2021-10-17 12:24] LABS: Neutrophils Absolute Manual 6808 /uL (3000-5900); Total Cells Counted 100
== END ==
PROVIDERS: Family Provider Family Medicine; PCP Family Medicine; Referring Provider Physician Assistant; Visit Provider Physician Assistant
DX: L70.0 Acne vulgaris (principal); R73.03 Prediabetes
CPT/HCPCS: 36415; 80061; 80076; 83036; 83721; 85007; 85025

== ENCOUNTER → 2021-12-04 17:50 | Outpatient (CLI) | payer OTHER, SELFPAY ==
[2021-12-04 18:10] LABS: Add Manual Diff / Slide Review NO; Basophils Absolute Auto 100 /uL (0-100); Basophils Percent Auto 0.8 % (0-2); Eosinophils Absolute Auto 400 /uL (0-450); Eosinophils Percent Auto 3.4 % (2-4); Hematocrit 41.7 % (41-53); Hemoglobin 14.3 g/dL (13.5-17.5); Lymphocytes Absolute Auto 2700 /uL (1100-4500); Lymphocytes Percent Auto 23.3 % (25-40); Mean Corpuscular HGB Conc 34.4 % (30-36); Mean Corpuscular Hemoglobin 27.3 PG (26-34); Mean Corpuscular Volume 79.3 fL (80-100); Monocytes Absolute Auto 900 /uL (0-900); Monocytes Percent Auto 8.3 % (3-14); Neutrophils Absolute Auto 7300 /uL (1500-7000); Neutrophils Percent Auto 64.2 % (50-75); Platelet Count 310 X10^3/uL (150-400); Red Blood Cell Count 5.26 X10^6/uL (4.5-5.9); Red Cell Distribution Width 14.6 % (11.6-14.8); White Blood Cell Count 11.4 X10^3/uL (4.5-11.0)
[2021-12-04 18:27] LABS: Alanine Aminotransferase 60 IU/L (<50); Albumin 4.4 g/dL (3.5-5.0); Albumin Globulin Ratio 1.3 (1.0-2.8); Alkaline Phosphatase 62 U/L (38-126); Aspartate Aminotransferase 50 IU/L (17-59); Bilirubin Total 0.4 mg/dL (0.2-1.3); Bilirubin Unconjugated 0.4 mg/dL (0.0-1.1); Cholesterol 139 mg/dL (140-199); Globulin 3.5 g/dL (1.7-4.1); HDL Cholesterol 26 mg/dL (40-60); HEMOLYSIS < 15 (0-50); LDL Cholesterol Calculated 68 mg/dL (<100); Total Protein 7.9 g/dL (6.3-8.2); Triglycerides 224 mg/dL (35-150); VLDL Cholesterol Calculated 45 mg/dL (2-30)
== END ==
PROVIDERS: Family Provider Family Medicine; PCP Family Medicine; Referring Provider Physician Assistant; Visit Provider Physician Assistant
DX: L70.0 Acne vulgaris (principal)
CPT/HCPCS: 36415; 80061; 80076; 85025

== ENCOUNTER → 2022-02-11 08:11 | Outpatient (CLI) | payer OTHER, SELFPAY ==
[2022-02-11 08:35] LABS: Add Manual Diff / Slide Review NO; Basophils Absolute Auto 100 /uL (0-100); Eosinophils Absolute Auto 500 /uL (0-450); Eosinophils Percent Auto 5.1 % (2-4); Hematocrit 42.4 % (41-53); Hemoglobin 14.2 g/dL (13.5-17.5); Lymphocytes Absolute Auto 2000 /uL (1100-4500); Mean Corpuscular HGB Conc 33.4 % (30-36); Monocytes Absolute Auto 600 /uL (0-900); Monocytes Percent Auto 6.8 % (3-14); Neutrophils Absolute Auto 6000 /uL (1500-7000); Neutrophils Percent Auto 65.1 % (50-75); Platelet Count 273 X10^3/uL (150-400); Red Blood Cell Count 5.24 X10^6/uL (4.5-5.9); Red Cell Distribution Width 15.2 % (11.6-14.8); White Blood Cell Count 9.3 X10^3/uL (4.5-11.0)
[2022-02-11 08:52] LABS: Alanine Aminotransferase 49 IU/L (<50); Albumin 4.2 g/dL (3.5-5.0); Albumin Globulin Ratio 1.2 (1.0-2.8); Alkaline Phosphatase 65 U/L (38-126); Aspartate Aminotransferase 45 IU/L (17-59); Bilirubin Total 0.6 mg/dL (0.2-1.3); Bilirubin Unconjugated 0.6 mg/dL (0.0-1.1); Cholesterol 127 mg/dL (140-199); Globulin 3.5 g/dL (1.7-4.1); HDL Cholesterol 25 mg/dL (40-60); HEMOLYSIS < 15 (0-50); LDL Cholesterol Calculated 65 mg/dL (<100); Total Protein 7.7 g/dL (6.3-8.2); Triglycerides 184 mg/dL (35-150); VLDL Cholesterol Calculated 37 mg/dL (2-30)
== END ==
PROVIDERS: Family Provider Family Medicine; PCP Family Medicine; Referring Provider Physician Assistant; Visit Provider Physician Assistant
DX: L70.0 Acne vulgaris (principal)
CPT/HCPCS: 36415; 80061; 80076; 85025

== ENCOUNTER → 2025-10-16 12:06 | Outpatient (CLI) | payer OTHER, SELFPAY ==
[2025-10-16 12:40] LABS: Add Manual Diff / Slide Review NO; Hematocrit 45.2 % (41-53); Hemoglobin 15.5 g/dL (13.5-17.5); Lymphocytes Absolute Auto 2400 /uL (1100-4500); Mean Corpuscular HGB Conc 34.3 % (30-36); Mean Corpuscular Hemoglobin 28.0 PG (26-34); Mean Corpuscular Volume 81.7 fL (80-100); Platelet Count 321 X10^3/uL (150-400)
[2025-10-16 13:09] LABS: Alanine Aminotransferase 56 IU/L (<50); Albumin 4.5 g/dL (3.5-5.0); Albumin Globulin Ratio 1.4 (1.0-2.8); Alkaline Phosphatase 64 U/L (38-126); Blood Urea Nitrogen 14 mg/dL (9-20); Calcium 9.0 mg/dL (8.4-10.2); Carbon Dioxide 23 mmol/L (22-32); Chloride 104 mmol/L (98-107); Cholesterol 124 mg/dL (140-199); Estimated Glomerular Filt Rate > 60 mL/min (>60); Globulin 3.3 g/dL (1.7-4.1); Glucose 100 mg/dL (70-99); HDL Cholesterol 36 mg/dL (40-60); HEMOLYSIS 16 (0-50); Hemoglobin A1C% w Est Avg Glu 6.4 % (4.0-6.0); Potassium 4.3 mmol/L (3.4-5.1); Sodium 138 mmol/L (137-145); Total Protein 7.8 g/dL (6.3-8.2); Triglycerides 129 mg/dL (35-150)
[2025-10-16 15:23] LABS: Vitamin D 25 Hydroxy (D3) < 12.8 ng/mL (30.0-100.0)
== END ==
PROVIDERS: PCP Family Medicine; Referring Provider Family Medicine; Visit Provider Family Medicine
DX: R73.03 Prediabetes (principal); E78.6 Lipoprotein deficiency; Z12.5 Encounter for screening for malignant neoplasm of prostate; Z68.42 Body mass index [BMI] 45.0-49.9, adult; E55.9 Vitamin D deficiency, unspecified
CPT/HCPCS: 36415; 80053; 80061; 82306; 83036; 85025; G0103